=== PATIENT | male | born 1965 | race Caucasian/White ===

== ENCOUNTER → 2022-03-30 | Outpatient (CLI) | payer BC ==
[~2022-03-30] MED LIST: DEXAMETHASONE PRES.FREE 10 MG/ML VIAL. ONE; IOHEXOL 180 MG/ML 10 ML VIAL. ONE
--- NOTE | 2022-03-30 13:04 | PDOC1 ---
INITIAL PAIN CONSULT DATE OF SERVICE: DOS: DATE: 03/30/22 TIME: 12:58 CHIEF COMPLAINT: Chief Complaint: Neck and left upper extremity pain HISTORY OF PRESENT ILLNESS: 56-year-old male presents with history of pain in the base the neck and left upper extremity for about 3 months not the result of any specific injury or accident that he is aware of but is been getting worse with repetitive motions weightlifting daily activities reaching over his head with his left arm and has been causing some easy fatigability in the left upper extremity. Patient reports is intermittent in intensity worse with activity also with driving using his left arm changes during the day describes it as tingling and numb in the left arm and hands radiating from the shoulder in the posterior deltoid into the trapezius also the posterior triceps and anterior biceps into the forearm and the hand with numbness and tingling in the thumb and first finger patient reports is radiating in the arm cramping aching in the neck and shoulder better with resting supporting his arm on a surface such as anterior arm or table and does not generally awaken her from sleep at night. Patient has had some str etching and strengthening exercises has been doing given to him by his primary care physician but no significant improvement patient also been taking Tylenol several times daily which helps but only very minimally. Patient did have MRI scan of the cervical spine which we discussed with him today showing degenerative changes with multiple levels of foraminal narrowing C5-6 with left greater than right mild to moderate foraminal narrowing C6-7 showing at least moderate foraminal narrowing with effacement of ventral CSF column as well. 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 PAST MEDICAL HISTORY: PMH: Arthritis, gastroesophageal reflux PREVIOUS SURGERIES: Past Surgical Hx: Bilateral knee surgery, hernia repair CURRENT MEDICATIONS: Current Meds: Active Scripts Medications Dose Route/Sig Max Daily Dose Days Date Category No Known Medications Prior To Admisstion (Info) Each 1 Each MC 1XDIA PRN 03/30/22 Reported ALLERGIES; Allergies: Coded Allergies: No Known Drug Allergies (Unverified , 03/30/22) FAMILY HISTORY: Family Hx: Cancers SOCIAL HISTORY: Social Hx: Patient drinks about 1 alcoholic drink a day does not smoke or use any illegal licit recreational drugs is lives with his spouse lives in [facility] and 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 REVIEW OF SYSTEMS: ROS: Positive for those items mentioned in history of present illness, all systems are reviewed, otherwise negative ,and are complete full and well-documented on patient's chart. PHYSICAL EXAM: VS: Blood pressure is 136/76 pulse 78 respirations 18 temperature is 97.8 F is 5 feet 9 inches weight is 208 pounds. PE: PHYSICAL EXAMINATION: GENERAL: The patient is awake, alert, oriented, appropriate, very pleasant in demeanor HEENT: Shows normocephalic, atraumatic. Extraocular movements are intact and symmetrical. Oral cavity: Mucous membranes moist and pink. Dentition is intact. NECK: Shows anterior throat supple without palpable lymphadenopathy noted. Swallow reflex symmetrical. CHEST: Shows normal on inspection. Breath sounds are clear bilaterally, no rales rhonchi or wheezes auscultated. HEART: Shows S1, S2 clear. No murmurs auscultated. ABDOMEN: Soft, nontender, nondistended. No palpable organomegaly is noted. BACK: Shows spine grossly in the midline. Normal-appearing cervical lordotic curvature. Cervical paraspinous muscles show symmetrical with inspection on palpation some moderate tenderness in the inferior aspect of the cervical paraspinous musculature only on the left compared to the right without hypertrophy or asymmetry and without trigger points. Patient shows good rotation motion cervical spine both laterally as well as full extension and full extension without significant reduction in mobility. There is slightly increased thoracic kyphosis, some minor flattening of the lumbar lordotic curvature. EXTREMITIES: Upper extremities show deep tendon reflexes 2+ in the biceps and triceps tendons. Motor exam is 5 on a scale of 5 with right testing shaking shipping, biceps and triceps flexion and 4/5 on the left. Peripheral pulses are 2+ radial. No peripheral edema is noted bilaterally. Shoulder shrug is strong and intact without loss of strength on resistance as is abduction of the shoulder 90 degrees bilaterally. Upper extremities are warm and dry to touch, equal in color and appearance. SKIN: Shows warm and dry, good turgor. No edema. No sores, rashes or bruising throughout. IMPRESSION: Impression: 56-year-old male with 3-month history of pain base the neck left upper extremity radicular fashion. MRI scan cervical spine as noted Arthritis Plan: Options were discussed the patient clued exert medical management physical therapies and interventional techniques. Patient like to pursue interventional techniques. We discussed a cervical epidural steroid injections description as well as anatomical models to describe the procedure. Risks were discussed including but not limited to: Bleeding, infection, possibility of epidural hematoma and subsequent neurological compromise, dural puncture, headaches, spinal cord and/or nerve damage, side effects of steroid medication, and poor results regarding pain control. Patient understands and wished to proceed. Patient will return to clinic in approximately 2 weeks for follow-up, was counseled as return appointment, active, and side effects. Procedure cervical epidural steroid injection at the C6-7 level, using local anesthetic under sterile prep and drape using C-arm fluoroscopic guidance under local anesthesia medications injected ; 20 mg dexamethasone +5 mL normal saline and 2 mL contrast; condition at discharge is stable patient tolerated procedure well. and had no complications MELLISSA SUAREZ MD March 30, 2022 13:04
--- NOTE | 2022-03-30 13:05 | PDOC4 ---
Procedure Note: ICD 10 Code: ICD 10 Code: M54.12 M51.7 M48.07 Procedure Note: Patient was consented for cervical epidural steroid injection with fluoroscopic guidance. Risks were discussed including but not limited to: Bleeding, infection, possibility of epidural hematoma and subsequent neurological compromise, dural puncture, headaches, spinal cord and/or nerve damage, side effects of steroid medication, and poor results regarding pain control. Patient understands and wished to proceed. Procedure cervical epidural steroid injection at the C6-7 level, using local an esthetic under sterile prep and drape using C-arm fluoroscopic guidance under local anesthesia medications injected ; 20 mg dexamethasone +5 mL normal saline and 2 mL contrast; condition at discharge is stable patient tolerated procedure well. and had no complications MELLISSA SUAREZ MD March 30, 2022 13:05
== END | disposition home or self-care (01) ==
LOC: PNCL 11:04
PROVIDERS: ATTEND Anesthesiology
DX: M54.12 Radiculopathy, cervical region (principal); M48.07 Spinal stenosis, lumbosacral region; M19.90 Unspecified osteoarthritis, unspecified site; K21.9 Gastro-esophageal reflux disease without esophagitis; Z79.899 Other long term (current) drug therapy
CPT/HCPCS: 62321; G0463; J1100; Q9965